=== PATIENT | female | born 1960 | race Caucasian/White ===

== ENCOUNTER 2017-06-25 10:31 | Emergency (ER) | payer OTHER ==
[~2017-06-25] VITALS: Ht 160 cm; Wt 79.4 kg
[~2017-06-25 10:31] MED LIST: ACETAMINOPHEN-1 EAC1 PO; BACTRIM DS TAB1 EACH PO; CIPRO500 MG PO; CIPROFLOXACIN500 M1 PO; FLAGYL500 MG PO; HYDROCODON-ACE1 EACH PO; IBUPROFEN 800800 MG PO; KEFLEX250 MG; KEFLEX500 MG PO; NAPROSYN500 M1 PO; NAPROSYN500 MG PO; NOHOMEMEDICATIONS; NORCO 5-325 TA1 EACH PO; PRILOSEC20 MG PO; REQUIP; REQUIP3 MG PO; SENOKOT-S1 TA1 PO; ZOFRAN ODT4 MG DISSOLVE; ZOFRAN ODT4 MG SUBLING; ZOFRAN4 MG PO
[2017-06-25 11:17] VITALS: BP 151/78
== END 2017-06-25 11:23 | disposition left against medical advice (07) ==
LOC: M.ERS 10:31
DX: Z76.0 Encounter for issue of repeat prescription (principal); Z53.21 Procedure and treatment not carried out due to patient leaving prior to being seen by health care provider; F31.9 Bipolar disorder, unspecified; G25.81 Restless legs syndrome; F17.210 Nicotine dependence, cigarettes, uncomplicated; Z86.14 Personal history of Methicillin resistant Staphylococcus aureus infection; Z88.8 Allergy status to other drugs, medicaments and biological substances